=== PATIENT | male | born 1955 | race Caucasian/White ===

== ENCOUNTER → 2017-08-10 | Outpatient (CLI) | payer BC | LOC: M RAD 11:22 | DX: M16.0 Bilateral primary osteoarthritis of hip (principal); M51.35 Other intervertebral disc degeneration, thoracolumbar region; N28.89 Other specified disorders of kidney and ureter; M25.559 Pain in unspecified hip; S06.0X9A Concussion with loss of consciousness of unspecified duration, initial encounter; X58.XXXA Exposure to other specified factors, initial encounter; Y92.89 Other specified places as the place of occurrence of the external cause; Y93.89 Activity, other specified; Y99.8 Other external cause status | CPT/HCPCS: 73521 ==

== ENCOUNTER → 2019-08-28 | Outpatient (CLI) | payer BC, MEDICARE ==
--- NOTE | 2019-08-29 18:49 | ECGEPIP ---
[facility] Test Date: 2019-08-28 Pat Name: CATE SULLIVAN Department: Room: - Gender: Male Ambulatory Care Coordinator: : [id number] Requested By: Skyler Duffy Order Number: [id number] Reading MD: Severo Genao Measurements Intervals [place] Rate: 92 P: 32 NE: 176 QRS: -10 QRSD: 118 T: 3 QT: 358 QTc: 445 Interpretive Statements SINUS RHYTHM MODERATE INTRAVENTRICULAR CONDUCTION DELAY No prior tracing in the system Electronically Signed on 08-29-2019 18:49:22 EDT by Severo Genao
== END ==
LOC: M EKG 17:19
PROVIDERS: ATTEND Internal Medicine
DX: Z01.818 Encounter for other preprocedural examination (principal)

== ENCOUNTER → 2019-11-12 | Outpatient (CLI) | payer BC, MEDICARE ==
--- NOTE | 2019-11-12 18:03 | REP ---
Clinical: History of spinal stenosis. Technique: AP, lateral, flexion/extension, swimmer's, and open-mouth views of the cervical spine. Findings: Evidence for anterior fixation at the C5 - C7 level. Alignment and lordosis maintained. No acute fracture / compression injury or subluxation. C1-C2 articulation and odontoid process are intact. Impression: Status post anterior fixation. Stable alignment and lordosis. Electronically Signed by Pratik Will MD 11/12/2019 05:54 P
== END ==
LOC: M RAD 12:14
PROVIDERS: ATTEND Orthopaedic Surgery
DX: M48.02 Spinal stenosis, cervical region (principal); Z98.1 Arthrodesis status

== ENCOUNTER → 2020-04-04 | Outpatient (CLI) | payer BC, MEDICARE ==
[2020-04-04 12:19] LABS: HEMATOCRIT 43.9 % (42.0-52.0); HEMOGLOBIN 14.9 g/dl (13.5-17.5); MEAN CORPUSCULAR HEMOGLOBIN 33.1 pg (27.0-33.0); MEAN CORPUSCULAR HGB CONC 33.9 g/dl (32.0-36.5); MEAN CORPUSCULAR VOLUME 97.6 fl (80.0-96.0); PLATELET COUNT, AUTOMATED 269 10^3/uL (150-450); WHITE BLOOD COUNT 7.9 10^3/uL (4.0-10.0)
[2020-04-04 12:40] LABS: ALBUMIN 3.7 GM/DL (3.2-5.2); ALT/SGPT 37 U/L (12-78); BILIRUBIN,TOTAL 0.6 MG/DL (0.2-1.0); BLOOD UREA NITROGEN 18 MG/DL (7-18); CALCIUM LEVEL 9.1 MG/DL (8.8-10.2); CARBON DIOXIDE LEVEL 31 MEQ/L (21-32); CHLORIDE LEVEL 104 MEQ/L (98-107); CHOLESTEROL LEVEL 135 MG/DL (<200); CREATININE FOR GFR 1.01 MG/DL (0.70-1.30); GLOMERULAR FILTRATION RATE > 60.0 (>49); GLUCOSE, FASTING 104 MG/DL (70-100); HDL CHOLESTEROL 50 MG/DL (>40); LDL CHOLESTEROL 72 MG/DL (<100); NON-HDL-C 85 MG/DL; POTASSIUM SERUM 4.9 MEQ/L (3.5-5.1); SODIUM LEVEL 139 MEQ/L (136-145); TOTAL PROTEIN 6.9 GM/DL (6.4-8.2); TRIGLYCERIDES LEVEL 65 MG/DL (<150)
== END ==
LOC: M LAB 11:33
PROVIDERS: ATTEND Internal Medicine
DX: E78.5 Hyperlipidemia, unspecified (principal)

== ENCOUNTER → 2020-12-30 | Outpatient (CLI) | payer BC, MEDICARE ==
--- NOTE | 2020-12-30 15:32 | REP ---
INDICATION: RT HIP PAIN W/ REPLACEMENT ? LOOSENING. COMPARISON: Comparison hip radiographs are from August 10, 2017. The patient gives a history of bilateral hip arthroplasties, apparently in the interval since the August 2017 prior radiographs. TECHNIQUE: 21.7 mCi of technetium 99 M MDP is injected and standard 3 phase imaging of the hips is acquired. FINDINGS: Anterior and posterior flow images are unremarkable. Blood pool images show photopenia in the region of the femoral heads consistent with bilateral hip arthroplasties. Delayed scan images demonstrate photopenia in the femoral head. There is no evidence to suggest prosthesis component loosening. Plan delayed scan images are otherwise unremarkable. IMPRESSION: Expected photopenia in the region of the femoral heads bilaterally consistent with bilateral hip arthroplasty components. This should be correlated and confirmed with surgical history. I do not have radiographs that show hip arthroplasties. If the patient has not had bilateral hip arthroplasties, there would be concern for avascular necrosis of the femoral head on the un operated side. There is no evidence to suggest loosening scintigraphically. <Electronically signed by Josep Godoy > 12/30/20 0511
== END ==
LOC: M RAD 11:00
PROVIDERS: ATTEND Student in an Organized Health Care Education/Training Program
DX: M25.551 Pain in right hip (principal)

== ENCOUNTER 2021-07-13 19:15 | Emergency (ER) | payer BC, MEDICARE ==
[~2021-07-13] VITALS: Ht 180.3 cm; Wt 94.1 kg
[2021-07-13] MEDS ORDERED: PROP60TA14 PO (19:38)
[2021-07-13] MEDS ORDERED: AVAP300T23 PO (19:38)
[2021-07-13] MEDS ORDERED: VITA-158 PO (19:38)
[2021-07-13] MEDS ORDERED: ECOT81TA5 PO (19:38)
[2021-07-13] MEDS ORDERED: CALC500C16 PO (19:38)
[2021-07-13] MEDS ORDERED: ceFAZolin SOD 1 GM in D5W MINI-BAG PLUS 50 ML IV ONE (22:35)
[2021-07-13 23:27] VITALS: BP 135/85
[2021-07-13] MEDS ORDERED: MORPHINE 2 MG/ML 1ML VIAL (J2270) IV ONE (23:50)
== END 2021-07-14 00:52 | disposition short-term general hospital (02) ==
LOC: M ED 19:15
DX: T81.30XA Disruption of wound, unspecified, initial encounter (principal); I10 Essential (primary) hypertension; E78.5 Hyperlipidemia, unspecified; G47.33 Obstructive sleep apnea (adult) (pediatric); E66.9 Obesity, unspecified; Z79.899 Other long term (current) drug therapy
CPT/HCPCS: 87798; 96365; 96375; 99284; J0690; J2270

== ENCOUNTER → 2021-07-26 | Outpatient (REF) | payer BC, MEDICARE ==
[~2021-07-26] MED LIST: AVAP300T23 PO; CALC500C16 PO; ECOT81TA5 PO; PROP60TA14 PO; VITA-158 PO
[2021-07-26 16:39] LABS: BASO % 0.6 % (0.0-1.0); EOS # 0.2 10^3/uL (0.0-0.5); EOS % 2.4 % (0.0-3.0); HEMATOCRIT 37.7 % (42.0-52.0); HEMOGLOBIN 12.6 g/dl (13.5-17.5); LYMPH # 2.1 10^3/uL (1.5-5.0); LYMPH % 28.9 % (24.0-44.0); MEAN CORPUSCULAR HEMOGLOBIN 33.6 pg (27.0-33.0); MEAN CORPUSCULAR HGB CONC 33.4 g/dl (32.0-36.5); MEAN CORPUSCULAR VOLUME 100.5 fl (80.0-96.0); MONO # 0.8 10^3/uL (0.0-0.8); MONO % 10.7 % (2.0-8.0); NEUTROPHILS # 4.1 10^3/uL (1.5-8.5); NEUTROPHILS % 57.3 % (36.0-66.0); PLATELET COUNT, AUTOMATED 304 10^3/uL (150-450); RED BLOOD COUNT 3.75 10^6/uL (4.30-6.10); WHITE BLOOD COUNT 7.2 10^3/uL (4.0-10.0)
[2021-07-26 17:12] LABS: ALBUMIN 3.1 GM/DL (3.2-5.2); ALT/SGPT 63 U/L (12-78); BILIRUBIN,TOTAL 0.3 MG/DL (0.2-1.0); BLOOD UREA NITROGEN 15 MG/DL (7-18); CALCIUM LEVEL 8.4 MG/DL (8.8-10.2); CARBON DIOXIDE LEVEL 28 MEQ/L (21-32); CHLORIDE LEVEL 104 MEQ/L (98-107); CREATININE FOR GFR 0.64 MG/DL (0.70-1.30); GLOMERULAR FILTRATION RATE > 60.0 (>49); GLUCOSE, FASTING 44 MG/DL (70-100); POTASSIUM SERUM 4.7 MEQ/L (3.5-5.1); SODIUM LEVEL 140 MEQ/L (136-145); TOTAL PROTEIN 6.3 GM/DL (6.4-8.2)
[2021-07-26 17:51] LABS: ERYTHROCYTE SEDIMENTATION RATE 58 mm/hr (0-20)
== END ==
LOC: M LAB REF 16:23
PROVIDERS: ATTEND Internal Medicine Infectious Disease
DX: Z98.1 Arthrodesis status (principal); T81.30XA Disruption of wound, unspecified, initial encounter; Z79.2 Long term (current) use of antibiotics

== ENCOUNTER → 2021-08-02 | Outpatient (REF) | payer BC ==
[2021-08-02 17:58] LABS: BASO % 0.7 % (0.0-1.0); EOS # 0.2 10^3/uL (0.0-0.5); EOS % 2.6 % (0.0-3.0); HEMATOCRIT 36.8 % (42.0-52.0); HEMOGLOBIN 12.5 g/dl (13.5-17.5); MEAN CORPUSCULAR HEMOGLOBIN 33.9 pg (27.0-33.0); MEAN CORPUSCULAR VOLUME 99.7 fl (80.0-96.0); MONO # 0.7 10^3/uL (0.0-0.8); MONO % 11.8 % (2.0-8.0); NEUTROPHILS # 2.9 10^3/uL (1.5-8.5); NEUTROPHILS % 49.7 % (36.0-66.0); PLATELET COUNT, AUTOMATED 310 10^3/uL (150-450); RED BLOOD COUNT 3.69 10^6/uL (4.30-6.10); WHITE BLOOD COUNT 5.8 10^3/uL (4.0-10.0)
[2021-08-02 18:34] LABS: ALBUMIN 3.1 GM/DL (3.2-5.2); ALT/SGPT 58 U/L (12-78); BILIRUBIN,TOTAL 0.3 MG/DL (0.2-1.0); BLOOD UREA NITROGEN 17 MG/DL (7-18); CALCIUM LEVEL 8.5 MG/DL (8.8-10.2); CARBON DIOXIDE LEVEL 27 MEQ/L (21-32); CHLORIDE LEVEL 106 MEQ/L (98-107); CREATININE FOR GFR 0.68 MG/DL (0.70-1.30); GLOMERULAR FILTRATION RATE > 60.0 (>49); GLUCOSE, FASTING 75 MG/DL (70-100); POTASSIUM SERUM 4.8 MEQ/L (3.5-5.1); SODIUM LEVEL 138 MEQ/L (136-145); TOTAL PROTEIN 6.4 GM/DL (6.4-8.2); VANCOMYCIN LEVEL TROUGH 12.9 UG/ML (10.0-20.0)
[2021-08-02 19:16] LABS: ERYTHROCYTE SEDIMENTATION RATE 58 mm/hr (0-20)
== END ==
LOC: M LAB REF 17:46
PROVIDERS: ATTEND Internal Medicine Infectious Disease
DX: Z79.2 Long term (current) use of antibiotics (principal); T81.30XA Disruption of wound, unspecified, initial encounter; Z98.1 Arthrodesis status

== ENCOUNTER → 2021-08-09 | Outpatient (REF) | payer BC ==
[2021-08-09 10:14] LABS: BASO % 0.4 % (0.0-1.0); EOS # 0.4 10^3/uL (0.0-0.5); EOS % 5.3 % (0.0-3.0); HEMATOCRIT 37.4 % (42.0-52.0); HEMOGLOBIN 12.4 g/dl (13.5-17.5); LYMPH # 1.8 10^3/uL (1.5-5.0); LYMPH % 22.3 % (24.0-44.0); MEAN CORPUSCULAR HEMOGLOBIN 33.2 pg (27.0-33.0); MEAN CORPUSCULAR HGB CONC 33.2 g/dl (32.0-36.5); MONO # 1.1 10^3/uL (0.0-0.8); MONO % 13.1 % (2.0-8.0); NEUTROPHILS # 4.7 10^3/uL (1.5-8.5); NEUTROPHILS % 58.5 % (36.0-66.0); PLATELET COUNT, AUTOMATED 284 10^3/uL (150-450); RED BLOOD COUNT 3.74 10^6/uL (4.30-6.10)
[2021-08-09 10:40] LABS: BLOOD UREA NITROGEN 24 MG/DL (7-18); CALCIUM LEVEL 8.7 MG/DL (8.8-10.2); CARBON DIOXIDE LEVEL 30 MEQ/L (21-32); CHLORIDE LEVEL 104 MEQ/L (98-107); CREATININE FOR GFR 0.63 MG/DL (0.70-1.30); GLOMERULAR FILTRATION RATE > 60.0 (>49); GLUCOSE, FASTING 85 MG/DL (70-100); POTASSIUM SERUM 4.6 MEQ/L (3.5-5.1); SODIUM LEVEL 137 MEQ/L (136-145)
[2021-08-09 10:41] LABS: ALBUMIN 3.1 GM/DL (3.2-5.2); ALT/SGPT 46 U/L (12-78); BILIRUBIN,TOTAL 0.5 MG/DL (0.2-1.0); C REACTIVE PROTEIN QUANTITATIV 0.32 MG/DL (0.00-0.30); TOTAL PROTEIN 6.5 GM/DL (6.4-8.2); VANCOMYCIN LEVEL TROUGH 12.6 UG/ML (10.0-20.0)
[2021-08-09 10:43] LABS: ERYTHROCYTE SEDIMENTATION RATE 51 mm/hr (0-20)
== END ==
LOC: M LAB REF 09:55
PROVIDERS: ATTEND Internal Medicine Infectious Disease
DX: Z98.1 Arthrodesis status (principal); T81.30XA Disruption of wound, unspecified, initial encounter; Z79.2 Long term (current) use of antibiotics

== ENCOUNTER → 2021-08-16 | Outpatient (REF) | payer BC ==
[2021-08-16 16:34] LABS: BASO % 0.5 % (0.0-1.0); EOS # 0.5 10^3/uL (0.0-0.5); EOS % 8.1 % (0.0-3.0); HEMATOCRIT 36.4 % (42.0-52.0); HEMOGLOBIN 12.2 g/dl (13.5-17.5); LYMPH # 1.5 10^3/uL (1.5-5.0); LYMPH % 25.8 % (24.0-44.0); MEAN CORPUSCULAR HEMOGLOBIN 33.3 pg (27.0-33.0); MEAN CORPUSCULAR HGB CONC 33.5 g/dl (32.0-36.5); MEAN CORPUSCULAR VOLUME 99.5 fl (80.0-96.0); MONO # 0.8 10^3/uL (0.0-0.8); MONO % 13.4 % (2.0-8.0); PLATELET COUNT, AUTOMATED 230 10^3/uL (150-450); RED BLOOD COUNT 3.66 10^6/uL (4.30-6.10); WHITE BLOOD COUNT 5.8 10^3/uL (4.0-10.0)
[2021-08-16 17:17] LABS: ALT/SGPT 310 U/L (12-78); BILIRUBIN,TOTAL 0.6 MG/DL (0.2-1.0); BLOOD UREA NITROGEN 17 MG/DL (7-18); C REACTIVE PROTEIN QUANTITATIV 1.07 MG/DL (0.00-0.30); CALCIUM LEVEL 8.6 MG/DL (8.8-10.2); CARBON DIOXIDE LEVEL 28 MEQ/L (21-32); CHLORIDE LEVEL 105 MEQ/L (98-107); CREATININE FOR GFR 0.68 MG/DL (0.70-1.30); GLOMERULAR FILTRATION RATE > 60.0 (>49); GLUCOSE, FASTING 80 MG/DL (70-100); POTASSIUM SERUM 4.5 MEQ/L (3.5-5.1); SODIUM LEVEL 138 MEQ/L (136-145); TOTAL PROTEIN 6.1 GM/DL (6.4-8.2); VANCOMYCIN LEVEL TROUGH 11.6 UG/ML (10.0-20.0)
[2021-08-16 19:13] LABS: ERYTHROCYTE SEDIMENTATION RATE 41 mm/hr (0-20)
== END ==
LOC: M LAB REF 15:33
PROVIDERS: ATTEND Internal Medicine Infectious Disease
DX: Z98.1 Arthrodesis status (principal); T81.30XA Disruption of wound, unspecified, initial encounter; Z79.2 Long term (current) use of antibiotics